=== PATIENT | male | born 1990 | race African-American/Black ===

== ENCOUNTER 2024-05-17 10:56 | Emergency (ER) | payer OTHER, SELFPAY ==
--- NOTE | ~2024-05-17 | CT_ITS ---
EXAMINATION: CT brain wo con DATE: 05/17/2024 12:27 INDICATION: Headache TECHNIQUE: Computed tomography (CT) of the head was performed without intravenous contrast. Sagittal and coronal reconstructions were performed. The mA was adjusted according to patient size. Iterative reconstruction technique was employed. The dose-length product was 605.33 mGy-cm. COMPARISON: None FINDINGS: No acute intracranial hemorrhage, acute infarction or abnormal extra axial fluid collection. Ventricl es are normal and symmetric. There is an empty sella . No mass/mass effect. The orbits and mastoid a ir cells are normal. Mild mucosal thickening the left ethmoid sinus. IMPRESSION: 1. There is an empty sella . Otherwise normal brain with no acute intracranial process. Reviewed, dictated and finalized at location A.
[2024-05-17 11:06] VITALS: BP 145/88; PULSE 56; RESP 16; TEMP 36.6; O2SAT 100
[2024-05-17 11:28] VITALS: BP 145/88; PULSE 56; RESP 16; TEMP 36.7; O2SAT 100
--- NOTE | 2024-05-17 11:38 | PC.NURSE ---
Pt states he feels things crawling on the back of my head, but they told me I don't have parasites , pt has been seen at multiple different facilities for the same complaint
[2024-05-17] MEDS: SODIUM CHLORIDE 0.9% IV 1,000 ML 999 ML IV CONT (12:38)
[2024-05-17 13:48] VITALS: BP 137/91; PULSE 63; RESP 18; O2SAT 100
--- NOTE | 2024-05-17 14:34 | ED.HA ---
HPI - Headache General Chief Complaint: Headache Stated Complaint: headache Time Seen by Provider: 05/17/24 11:42 History of Present Illness HPI Narrative: Patient is a 33-year-old male who presents ER with headache. Reports he has had the headache for several weeks. He has been to multiple ERs in [place] as well as in the [facility] without a diagnosis. Reports he has been given no pain medication. He thinks he has had imaging. He believes that part of his skull as physically been moved from the back of his head to his forehead. It is causing aching. No fevers or chills or sweats. Denies drug use. Has not found any alleviating factors. No sinus congestion or sore throat or productive cough. Related Data Allergies Allergy/AdvReac Type Severity Reaction Status Date / Time No Known Allergies Allergy Verified 05/17/24 11:09 Review of Systems Constitutional: Constitutional: Reports no additional constitutional complaints ENT: Reports system reviewed and no additional complaints, except as documented Neurologic: Reports system reviewed and no additional complaints, except as documented PMFSH Past Medical History Medical History (Updated 05/17/24 @ 15:21 by Deric De La Torre MD) Healthy adult male Exam Narrative: GENERAL: Well-appearing, well-nourished, and in no acute distress. HEAD: Normocephalic, atraumatic. EYES: PERRL and EOMI. ENT: Mucous membranes moist. NECK: Supple. CHEST: Clear to auscultation. No respiratory distress. HEART: Regular rate and rhythm. Normal peripheral pulses. EXTREMITIES: Normal range of motion. No edema. SKIN: Warm, dry, no rash. NEURO: Alert and oriented x3. Course Course Emergency Course: Toradol for pain. CT only shows empty sella. I have shown the patient his images to in fact demonstrate that his skull has not shifted and is not missing pieces. He would like a copy of the images in a disc has been provided. Vital Signs Vital signs: Vital Signs Temperature 98 F 05/17/24 11:06 Pulse Rate 56 L 05/17/24 11:06 Respiratory Rate 16 05/17/24 11:06 Blood Pressure 145/88 H 05/17/24 11:06 Pulse Oximetry 100 05/17/24 11:06 Oxygen Delivery Room Air 05/17/24 11:06 Temperature 98.0 F 05/17/24 11:28 Pulse Rate 63 05/17/24 13:48 Respiratory Rate 18 05/17/24 13:48 Blood Pressure 137/91 H 05/17/24 13:48 Pulse Oximetry 100 05/17/24 13:48 Oxygen Delivery Room Air 05/17/24 11:28 MDM - Headache Imaging Data Radiologist's impression: ITS Impressions Head CT 05/17/24 12:31 IMPRESSION: 1. There is an empty sella . Otherwise normal brain with no acute intracranial process. Discharge Plan Discharge Clinical Impression: Headache Patient Disposition: Home, Self-Care Condition: Stable Instructions: General Headache (ED) Additional Instructions: Return the ER if you have fever 100.4? F, you cannot keep down food water, you lose consciousness, have additional concerns. Prescriptions: New naproxen 375 mg tablet 375 mg PO BID Qty: 14 0RF Follow-up/Referrals: PHYSICIAN,CARDIOPULMONARY TECHNICIAN [Primary Care Provider] - Miles Rodriguez MD [Physician] - 1 Week
[2024-05-17 15:21] VITALS: BP 121/70; PULSE 77; RESP 19; O2SAT 100
== END 2024-05-17 15:23 | disposition home or self-care (01) ==
PROVIDERS: Emergency Provider Emergency Medicine
DX: R51.9 Headache, unspecified (principal)
CPT/HCPCS: 70450; 96360; 99284; J7030